=== PATIENT | female | born 1990 | race Caucasian/White ===

== ENCOUNTER 2017-12-25 18:40 | Inpatient (IN) | payer MEDICAID ==
[~2017-12-25] VITALS: Ht 167.6 cm; Wt 56.4 kg
--- NOTE | 2017-12-25 19:42 | PHYS DOC ---
Past History Past Medical History: Anxiety, Depression, Other Past Surgical History: No Surgical History Alcohol Use: Occasionally Drug Use: Cocaine, Methamphetamine Adult General Chief Complaint Chief Complaint: WITHDRAWL HPI HPI Patient is a 27 year old female who presents with complaint of suicidal thoughts. Patient states that she has been using crack cocaine and methamphetamine over the past 4 days. Patient last used this morning. The patient states that she is addicted to crack and methamphetamine. Patient also states she has history of bipolar disorder and depression. The patient states that she is currently having suicidal thoughts. Patient states that if she leaves the emergency department "I will probably kill myself." Patient came to the emergency department if she is seeking help for her drug use as well as her depression. Patient states that she does not feel safe with herself at this time. The patient currently denies chest pain, shortness of breath, vomiting, abdominal pain, or fever. Review of Systems Review of Systems Constitutional: Denies fever or chills [] Eyes: Denies change in visual acuity, redness, or eye pain [] HENT: Denies nasal congestion or sore throat [] Respiratory: Denies cough or shortness of breath [] Cardiovascular: Denies chest pain or edema[] GI: Denies abdominal pain, nausea, vomiting, bloody stools or diarrhea [] : Denies dysuria or hematuria [] Musculoskeletal: Denies back pain or joint pain [] Integument: Denies rash or skin lesions [] Neurologic: Denies headache, focal weakness or sensory changes [] All other systems were reviewed and found to be within normal limits, except as documented in this note. Allergies Allergies Allergies Coded Allergies Type Severity Reaction Last Updated Verified No Known Drug Allergies 12/25/17 No Physical Exam Physical Exam Constitutional: Alert, afebrile, depressed mood. [] HENT: Normocephalic, atraumatic, bilateral external ears normal, oropharynx moist, no oral exudates, nose normal. [] Eyes: PERRLA, EOMI, conjunctiva normal, no discharge. [] Neck: Normal range of motion, no tenderness, supple, no stridor. [] Cardiovascular: Tachycardia, regular rhythm, no murmur [] Lungs & Thorax: Bilateral breath sounds clear to auscultation [] Abdomen: Bowel sounds normal, soft, no tenderness, no masses, no pulsatile masses. [] Skin: Warm, dry, no erythema, no rash. [] Back: No tenderness, no CVA tenderness. [] Extremities: Superficial linear abrasions along left upper arm, No tenderness, no cyanosis, no clubbing, ROM intact, no edema. [] Neurologic: Alert and oriented X 3, normal motor function, normal sensory function, no focal deficits noted. [] Psychologic: Affect flat, judgement normal, mood depressed. [] Current Patient Data Vital Signs Vital Signs Date Time Temp Pulse Resp B/P (MAP) Pulse Ox O2 Delivery O2 Flow Rate FiO2 12/25/17 18:45 98.4 112 30 100 Room Air Lab Results Laboratory Tests Test 12/25/17 20:20 12/25/17 20:45 White Blood Count 5.4 x10^3/uL Red Blood Count 5.42 x10^6/uL Hemoglobin 17.6 g/dL Hematocrit 51.0 % Mean Corpuscular Volume 94 fL Mean Corpuscular Hemoglobin 33 pg Mean Corpuscular Hemoglobin Concent 35 g/dL Red Cell Distribution Width 13.2 % Platelet Count 340 x10^3/uL Neutrophils (%) (Auto) 57 % Lymphocytes (%) (Auto) 35 % Monocytes (%) (Auto) 6 % Eosinophils (%) (Auto) 1 % Basophils (%) (Auto) 1 % Neutrophils # (Auto) 3.1 x10^3uL Lymphocytes # (Auto) 1.9 x10^3/uL Monocytes # (Auto) 0.3 x10^3/uL Eosinophils # (Auto) 0.1 x10^3/uL Basophils # (Auto) 0.1 x10^3/uL Sodium Level 141 mmol/L Potassium Level 3.5 mmol/L Chloride Level 100 mmol/L Carbon Dioxide Level 28 mmol/L Anion Gap 13 Blood Urea Nitrogen 16 mg/dL Creatinine 0.9 mg/dL Estimated GFR (Cockcroft-Gault) 75.7 Glucose Level 70 mg/dL Calcium Level 10.6 mg/dL Magnesium Level 2.6 mg/dL Total Bilirubin 1.0 mg/dL Direct Bilirubin 0.2 mg/dL Aspartate Amino Transf (AST/SGOT) 13 U/L Alanine Aminotransferase (ALT/SGPT) 18 U/L Alkaline Phosphatase 47 U/L Total Protein 9.6 g/dL Albumin 5.4 g/dL Salicylates Level 1.1 mg/dL Salicylate Last Dose Date 12/25/17 Salicylate Last Dose Time 0700 Acetaminophen Level < 2.0 mcg/mL Acetaminophen Last Dose Date 12/25/17 Acetaminophen Last Dose Time 0700 Ethyl Alcohol Level < 10 mg/dL Urine Collection Type U cath Urine Color Straw Urine Clarity Clear Urine pH >8.5 Urine Specific Fletcher 1.015 Urine Protein 30 mg/dl Urine Glucose (UA) Neg mg/dL Urine Ketones (Stick) Trace mg/dL Urine Blood Neg Urine Nitrite Neg Urine Bilirubin Neg Urine Urobilinogen Dipstick 1 mg/dL Urine Leukocyte Esterase Neg Urine RBC 1-2 /HPF Urine WBC 1-4 /HPF Urine Squamous Epithelial Cells Mod /LPF Urine Bacteria 0 /HPF Urine Mucus Marked /LPF Urine Opiates Screen Neg Urine Methadone Screen Neg Urine Barbiturates Neg Urine Phencyclidine Screen Neg Urine Amphetamine/Methamphetamine Pos Urine Benzodiazepines Screen Neg Urine Cocaine Screen Neg Urine Cannabinoids Screen Pos Urine Ethyl Alcohol Neg Current Medications Medications (Trade) Dose Ordered Sig/Patrick Route PRN Reason Start Time Stop Time Status Last Admin Dose Admin Sodium Chloride 1,000 ml @ 1,000 mls/hr Q1H IV 12/25/17 20:00 12/25/17 20:59 DC 12/25/17 20:27 EKG EKG Interpreted by me: Heart rate 77, sinus rhythm, normal intervals, normal axis, no acute ST/T-wave abnormalities present[] Radiology/Procedures Radiology/Procedures Not performed[] Course & Med Decision Making Course & Med Decision Making Pertinent Labs and Imaging studies reviewed. (See chart for details) Patient voicing suicidal ideation in the emergency department at this time. Patient underwent psychiatric screening and recommendation wasn't patient placement. There is no reported bed availability at this time. The patient will be admitted the hospital for further monitoring until patient can be safely transferred to an inpatient psychiatric facility. I spoke with Dr. Keith who accepted care patient in hospital. Dragon Disclaimer Dragon Disclaimer This electronic medical record was generated, in whole or in part, using a voice recognition dictation system. Departure Departure: Impression: Primary Impression: Suicidal ideation Additional Impression: Substance abuse Disposition: 09 ADMITTED INPATIENT Admitting Physician: Nancy Keith Condition: GUARDED Referrals: PCP,NO (PCP) Problem Qualifiers HEATHER HOWELL MD December 25, 2017 19:42
[2017-12-25] MEDS ORDERED: IV NORMAL SALINE 1,000ML 1,000 ML IV SCH (20:00)
[2017-12-25 20:59] LABS: BASO # 0.1 x10^3/uL (0.0-0.2); BASO % 1 % (0-3); EOS # 0.1 x10^3/uL (0.0-0.7); EOS % 1 % (0-3); HEMOGLOBIN 17.6 g/dL (12.0-15.5); LYMPH # 1.9 x10^3/uL (1.0-4.8); LYMPH % 35 % (24-48); MEAN CORPUSCULAR HEMOGLOBIN 33 pg (25-35); MEAN CORPUSCULAR HGB CONC 35 g/dL (31-37); MEAN CORPUSCULAR VOLUME 94 fL (79-100); MONO # 0.3 x10^3/uL (0.0-1.1); MONO % 6 % (0-9); NEUT # 3.1 x10^3uL (1.8-7.7); NEUT % 57 % (31-73); PLATELET COUNT 340 x10^3/uL (140-400); RED BLOOD COUNT 5.42 x10^6/uL (3.50-5.40); RED CELL DISTRIBUTION WIDTH 13.2 % (11.5-14.5); WHITE BLOOD COUNT 5.4 x10^3/uL (4.0-11.0)
[2017-12-25 21:10] LABS: ACETAMIN < 2.0 mcg/mL (10-30); ETHANOL < 10 mg/dL (0-10); SALIC 1.1 mg/dL (2.8-20.0)
[2017-12-25 21:11] LABS: ALBUMIN 5.4 g/dL (3.4-5.0); CALCIUM 10.6 mg/dL (8.5-10.1); CREATININE 0.9 mg/dL (0.6-1.0); DIRECT BILIRUBIN 0.2 mg/dL (0.0-0.2); GFR 75.7; MAGNESIUM 2.6 mg/dL (1.8-2.4); POTASSIUM 3.5 mmol/L (3.5-5.1); TOTAL PROTEIN 9.6 g/dL (6.4-8.2)
[2017-12-25 21:15] LABS: AMPHETAMINE/METHAMPHETAMINE POS (NEG); BARBITURATES NEG (NEG); BENZODIAZEPINES NEG (NEG); CANNABINOIDS POS (NEG); COCAINE NEG (NEG); METHADONE NEG (NEG); OPIATES NEG (NEG); PHENCYCLIDINE NEG (NEG)
[2017-12-25 21:21] LABS: BACTERIA,URINE 0 /HPF (0-FEW); BILIRUBIN,URINE NEG (NEG); CLARITY,URINE CLEAR; COLOR,URINE STRAW; GLUCOSE,URINE NEG (NEG); NITRITE,URINE NEG (NEG); SQUAMOUS EPITHELIAL CELL,UR MOD /LPF; UROBILINOGEN,URINE 1 mg/dL (0.2 mg/dL)
[2017-12-25] MEDS: LORazepam 1 MG TABLET PO PRN (21:41)
[2017-12-25] MEDS ORDERED: ONDANSETRON ODT 4 MG TAB.RAPDIS PO PRN (21:45)
[2017-12-25 22:01] LABS: U PREG PATIENT NEGATIVE (NEG)
--- NOTE | 2017-12-25 22:20 | NUR ---
Yu Acevedo, 27 year old female, admitted to room ICU-2, Dr Keith's service, dx: suicidal ideation, with history of previous attempt, polysubstance abuse. Admission process completed. Reviewed with patient the protocol for suicidal ideation. Pt is a 1:1. Pt is denying SI at this time. Items removed from room per protocol. Pt verbalizes understanding. Will CTM pt.
[2017-12-25 22:36] VITALS: BP 96/54
[2017-12-25] MEDS ORDERED: diphenhydrAMINE HCL 25 MG CAPSULE PO PRN (23:15)
--- NOTE | 2017-12-25 23:32 | EKG ---
[address] [address] Test Date: 2017-12-25 Test Time: 19:45:31 Pat Name: LAWANDA CHUNG Department: Room: Gender: F Board Attendant: SAE : 1990 Requested By: HEATHER HOWELL Order Number: [id number] Reading MD: Measurements Intervals [place] Rate: 77 P: 46 WI: 144 QRS: 53 QRSD: 80 T: 34 QT: 364 QTc: 414 Interpretive Statements SINUS RHYTHM OTHERWISE NORMAL ECG RI6.01 No previous ECG available for comparison
[2017-12-26] VITALS (12 sets, daily range): BP systolic 77–101; BP diastolic 35–57
[2017-12-26] MEDS ORDERED: IV NORMAL SALINE 1,000ML 1,000 ML IV ONE (04:30)
[2017-12-26] MEDS: IV NORMAL SALINE 1,000ML 1,000 ML IV SCH ×2 (05:32→17:05)
[2017-12-26] MEDS: LORazepam 1 MG TABLET PO PRN (11:12)
--- NOTE | 2017-12-26 12:37 | NUR ---
Received call from Charlotte from [facility] who is working on getting placement for pt. Charlotte reported to me that all of the places she has tried have denied pt because they are full. She did mention a facility in [place] that has thought about accepting pt but they are worried about discharge planning. Charlotte was going to report back to that facility that pt feels she can get a ride home at discharge. Charlotte stated she would follow up on the facilities that were full earlier to see if they have had any discharges and she would keep me updated. Pt has pleasant and cooperative with care this morning. She states she still feels bad about herself and really wishes to get help to feel better.
[2017-12-26 16:34] LABS: BASO % 1 % (0-3); EOS # 0.1 x10^3/uL (0.0-0.7); EOS % 1 % (0-3); HEMATOCRIT 38.7 % (36.0-47.0); HEMOGLOBIN 13.2 g/dL (12.0-15.5); LYMPH # 1.7 x10^3/uL (1.0-4.8); LYMPH % 46 % (24-48); MEAN CORPUSCULAR HEMOGLOBIN 33 pg (25-35); MEAN CORPUSCULAR HGB CONC 34 g/dL (31-37); MEAN CORPUSCULAR VOLUME 96 fL (79-100); MONO # 0.2 x10^3/uL (0.0-1.1); MONO % 5 % (0-9); NEUT # 1.8 x10^3uL (1.8-7.7); NEUT % 47 % (31-73); PLATELET COUNT 233 x10^3/uL (140-400); RED BLOOD COUNT 4.04 x10^6/uL (3.50-5.40); RED CELL DISTRIBUTION WIDTH 13.1 % (11.5-14.5); WHITE BLOOD COUNT 3.8 x10^3/uL (4.0-11.0)
[2017-12-26 16:46] LABS: ALBUMIN 3.1 g/dL (3.4-5.0); ALBUMIN/GLOBULIN RATIO 1.2 (1.0-1.7); CREATININE 0.7 mg/dL (0.6-1.0); GFR 101.1; POTASSIUM 4.4 mmol/L (3.5-5.1); TOTAL BILIRUBIN 0.5 mg/dL (0.2-1.0); TOTAL PROTEIN 5.7 g/dL (6.4-8.2)
--- NOTE | 2017-12-26 17:44 | NUR ---
Charlotte from [facility] and Corrine with case management were unable to find placement for pt. Pt has decided that she would like to leave AMA and go to the [facility] in [place] for rehab. Information given to her about the [facility], including multiple locations and phone numbers. Pt verbalized understanding. Pt's IV was removed without complication.
--- NOTE | 2017-12-26 18:05 | HP ---
ADMIT DATE: HISTORY OF PRESENT ILLNESS: The patient is a 27-year-old female patient who came to the Emergency Room with a complaint of suicidal thoughts. The patient stated that she has been using crack cocaine and amphetamines over the last 4 days. Somebody has basically dropped her here in [place] and left her stranded here, according to description, and he is actually a family member, according to her. She stated that she is addicted to crack and methamphetamine. She also stated that she has a history of bipolar disorder and depression, but she is currently having suicidal thoughts, and that if she leaves the Emergency Department, "I will probably kill myself." She came seeking help for her drug use as well as her depression. She stated that she does not feel safe with herself at this time; however, she denied any other complaint. According to her, she has been using cocaine, amphetamine for over the last 1 year. She was not forthcoming with where she came from or where normally she lives except that both her parents are drug addicts, are living in the streets, and her foster parents refused talk to her. 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 Her chemistry showed a high evidence of dehydration. Her urinalysis was unremarkable. Urine test was negative and toxic screen was positive for amphetamine, methamphetamine as well as cannabinoids. She seemed to be very rational that she has no stable living condition for her to be able to work; however, she said that she is able to get cocaine and amphetamine for free. She does not have to pay any money or does not have to sell herself for that. She was admitted to the ICU with a plan to attempt to get her admitted one of psych units, although so far no inpatient psychiatric unit is available. She did undergo a psychiatric screening and recommendation ____. PAST MEDICAL HISTORY: Unremarkable. PAST SURGICAL HISTORY: Unremarkable. ALLERGIES: Has known drug allergies. MEDICATIONS: She is currently on no medication. FAMILY HISTORY: She has one brother who is mentally ill. Both parents are drug addicts and are living in the street, and her foster parents refused talk to her, according to her. SOCIAL HISTORY: She is single. She does smoke. Does not drink alcohol. Have been abusing cocaine and methamphetamine, has been using them consistently over the last 4 days prior to arrival to the Emergency Department. PHYSICAL EXAMINATION: GENERAL: On arrival to the Emergency Department, she was somewhat pale. No jaundice, cyanosis, or thyromegaly. No jugular venous distention or lower limb edema. VITAL SIGNS: Her heart rate was 112, blood pressure was 102/50, temperature was 98.4, respiratory rate was 30 and oxygen saturation was 100% on room air. HEAD, EYES, EARS, NOSE AND THROAT: Showed normocephalic, atraumatic. NECK: Supple. HEART: Showed normal first and second sounds. No gallop, rub or murmur. CHEST: Clear to auscultation. No crepitation or rhonchi. ABDOMEN: Distended, soft, nontender. No guarding or rigidity. No organomegaly. All hernial orifices intact. Bowel sounds normal. NEUROLOGIC: She is awake, alert, responding appropriately. All cranial nerves intact. EXTREMITIES: She moves extremities without difficulty. She ambulates without assistance or assistive devices. PSYCHOLOGICAL: Her affect is flat. Judgment is normal. Mood depressed. LABORATORY DATA: While in the Emergency Room, she has had lab work done, showed that her white cell count was 5400, hemoglobin 17.6, hematocrit 51, MCV 94 and platelet count 340,000 with normal manual differential. Her chemistry showed a serum sodium of 141, potassium 3.5, chloride 100, bicarbonate 28, anion gap of 13, BUN 16, creatinine 0.9, estimated GFR was 75 mL per minute. Her calcium was 10.6, magnesium was 2.6. Total bilirubin, AST, ALT, alkaline phosphatase were normal. Total protein was 9.6, albumin was 5.4. Urinalysis showed the urine was straw colored, clear with a pH of more than 8.5, specific gravity 1.015, there was small amount of protein, negative for glucose, trace of ketones, negative for blood, nitrite and bilirubin and leukocyte esterase, 1-2 rbc's, 1-4 wbc's, no bacteria. Her urine test was negative. Urine toxicology screen was positive for amphetamine, methamphetamine as well as cannabinoids. IMPRESSION: In summary, this is a 27-year-old female patient who came to the Emergency Room with suicidal ideation and drug addiction and depression. She underwent psychiatric screening and the recommendation was patient placement. Unfortunately, there are no beds available, and the patient was admitted to the ICU for safety, and efforts to place her otherwise are underway. BRANDAN ROSE MD DR: Wayne JOB#: [id number] / [id number]
--- NOTE | 2017-12-26 18:11 | NUR ---
Pt left AMA; nurse walked pt out front to her ride. Pt signed AMA form before leaving.
== END 2017-12-26 18:12 | disposition left against medical advice (07) | DRG 894 ==
LOC: ER 18:40 → ICU 21:30
PROVIDERS: ADMIT Internal Medicine; ATTEND Internal Medicine
DX: F14.20 Cocaine dependence, uncomplicated (principal); R45.851 Suicidal ideations; F31.9 Bipolar disorder, unspecified; D75.1 Secondary polycythemia; E86.0 Dehydration; F19.10 Other psychoactive substance abuse, uncomplicated; F17.200 Nicotine dependence, unspecified, uncomplicated; Z53.21 Procedure and treatment not carried out due to patient leaving prior to being seen by health care provider; F41.9 Anxiety disorder, unspecified
CPT/HCPCS: 36415; 80048; 80053; 80076; 80307; 81001; 81025; 83735; 85025; 87641; 93005; 96360; 99406; G0480; Q0162; Q0163; 99285-25; G0479; J7030